=== PATIENT | male | born 1965 | race Caucasian/White ===

== ENCOUNTER 2018-11-03 02:33 | Emergency (ER) | payer OTHER ==
[2018-11-03 03:31] VITALS: BP 130/83; PULSE 58; TEMP 98.3; BMI 33.0
--- NOTE | 2018-11-03 03:49 | PDOC ---
History of Present Illness - General Chief Complaint: Ingestion Stated Complaint: INGESTION OF FOREIGN SUBSTANCE Time Seen by Provider: 11/03/18 03:29 History Source: Patient - History of Present Illness Initial Comments: 11/03/18 04:02 53 year old male Complaining of accidentally drinking less than 2 ounces of diluted Clorox now with irritation to the throat and reports some burning to chest. Patient since episode has rinsed his mouth multiple times and drank Allmond milk. Reports symptoms has been much milder since then. Denies nausea, vomiting, abdominal pain. No drooling, respiratory complaints. Past History - Past Medical History Allergies/Adverse Reactions: Allergies Allergy/AdvReac Type Severity Reaction Status Date / Time No Known Allergies Allergy Verified 11/03/18 03:31 Home Medications: Ambulatory Orders NK [No Known Home Medication] 11/13/15 Asthma: No Diabetes: Yes (DIET CONTROLLED) HTN: No Hypercholesterolemia: Yes (borderline, on diet control) - Suicide/Smoking/Psychosocial Hx Smoking Status: No Smoking History: Never smoked Have you smoked in the past 12 months: No Number of Cigarettes Smoked Daily: 0 Information on smoking cessation initiated: No Hx Alcohol Use: No Drug/Substance Use Hx: No Substance Use Type: None Review of Systems - Review of Systems Able to Perform ROS?: Yes Is the patient limited [place] proficient: No Constitutional: No: Symptoms Reported, See HPI, Chills, Diaphoresis, Fever, Loss of Appetite, Malaise, Night Sweats, Weakness, Weight Stable, Unintentional Wgt. Loss, Unexplained wgt Loss, Other *Physical Exam - Vital Signs Last Vital Signs Temp Pulse Resp BP Pulse Ox 98.3 F 58 L 16 130/83 98 11/03/18 02:33 11/03/18 02:33 11/03/18 02:33 11/03/18 02:33 11/03/18 02:33 - Physical Exam General Appearance: Yes: Appropriately Dressed HEENT: positive: Pharyngeal Erythema (mild) Respiratory/Chest: positive: Lungs Clear, Normal Breath Sounds Cardiovascular: positive: Regular Rhythm, Regular Rate Gastrointestinal/Abdominal: positive: Normal Bowel Sounds, Soft. negative: Tender Medical Decision Making - Medical Decision Making 11/03/18 04:39 case discussed with poison control worker (Don Elder) recommends by mouth trailing and GI consult. Case also discussed with Dr. trigenis. since Clorox this diluted down from commercially made, we will monitor for any worsening symptoms and give by mouth challenge. 11/03/18 04:40 patient tolerated drinking juice and water. Reports feeling relief. We'll continue to monitor for any adverse outcome. 11/03/18 05:48 tolerated PO . no pain at this time. will d/c home *DC/Admit/Observation/Transfer Diagnosis at time of Disposition: Ingestion of bleach Qualifiers: Encounter type: initial encounter Injury intent: accidental or unintentional Qualified Code(s): T54.91XA - Toxic effect of unspecified corrosive substance, accidental (unintentional), initial encounter - Discharge Dispostion Disposition: HOME Condition at time of disposition: Fair - Referrals Referrals: Carlos Ferguson [Primary Care Provider] - 24 hours - Patient Instructions Printed Discharge Instructions: Gastritis Additional Instructions: drink plenty of fluids bland diet follow up with your doctor as soon as possible. - Post Discharge Activity Forms/Work/School Notes: Back to Work
--- NOTE | 2018-11-03 03:52 | PDOC ---
*Physical Exam - Vital Signs Last Vital Signs Temp Pulse Resp BP Pulse Ox 98.3 F 58 L 16 130/83 98 11/03/18 02:33 11/03/18 02:33 11/03/18 02:33 11/03/18 02:33 11/03/18 02:33 Medical Decision Making - Medical Decision Making 11/03/18 03:52 Patient seen by the advanced practice provider under my direct supervision. Ancillary testing reviewed as necessary. I agree with plan as outlined by the advanced practice provider. *DC/Admit/Observation/Transfer Diagnosis at time of Disposition: Ingestion of bleach Qualifiers: Encounter type: initial encounter Injury intent: accidental or unintentional Qualified Code(s): T54.91XA - Toxic effect of unspecified corrosive substance, accidental (unintentional), initial encounter - Discharge Dispostion Disposition: HOME Condition at time of disposition: Fair - Referrals Referrals: Carlos Ferguson [Primary Care Provider] - 24 hours - Patient Instructions Printed Discharge Instructions: Gastritis Additional Instructions: drink plenty of fluids bland diet follow up with your doctor as soon as possible. - Post Discharge Activity Forms/Work/School Notes: Back to Work
== END 2018-11-03 06:25 | disposition home or self-care (01) ==
LOC: JER 02:33
DX: T54.91XA Toxic effect of unspecified corrosive substance, accidental (unintentional), initial encounter (principal); R07.0 Pain in throat; R07.9 Chest pain, unspecified; Y92.89 Other specified places as the place of occurrence of the external cause
CPT/HCPCS: 99283-25

== ENCOUNTER 2018-11-16 19:26 | Emergency (ER) | payer OTHER ==
[2018-11-16 19:33] VITALS: BP 137/88; PULSE 77; TEMP 98.1; BMI 33.2
[2018-11-16] MEDS ORDERED: CYCLOBENZAPRINE HCL 10 MG TABLET (FP) ONE (19:41)
[2018-11-16] MEDS ORDERED: KETOROLAC TROMETHAMINE 60 MG/2 ML VIAL ONE (19:41)
[2018-11-16] MEDS ORDERED: predniSONE 20 MG TABLET (UD) ONE (19:41)
[2018-11-16] MEDS ORDERED: predniSONE 20 MG TABLET (UD) PO ONE (19:48)
[2018-11-16] MEDS ORDERED: CYCLOBENZAPRINE HCL 10 MG TABLET (FP) PO ONE (19:49)
[2018-11-16] MEDS ORDERED: KETOROLAC TROMETHAMINE 60 MG/2 ML VIAL IM ONE (19:49)
--- NOTE | 2018-11-16 20:01 | PDOC ---
Documentation entered by Dara Grider SCRIBE, acting as scribe for Geoff Brumfield MD. Geoff Brumfield MD: This documentation has been prepared by the Cheo anton Xhesika, SCRIBE, under my direction and personally reviewed by me in its entirety. I confirm that the documentation accurately reflects all work, treatment, procedures, and medical decision making performed by me. History of Present Illness - General Chief Complaint: Pain, Acute Stated Complaint: BACK PAIN DUE TO WORK INJURY Time Seen by Provider: 11/16/18 19:32 History Source: Patient Exam Limitations: No Limitations - History of Present Illness Initial Comments: 11/16/18 19:50 The patient is a 53 year old male, with no significant past medical history of who presents to the emergency department with 4 days of lower back pain. The patient states he works at [employer], one of the kids knocked over a flower pot on , when he was lifting a flower pot and felt his back lock. The patient describes the pain as 8/10, non radiating pain, worsened with movements. Patient notes he took aleve with no relief of symptoms. The patient denies chest pain, shortness of breath, headache or dizziness. The patient denies fever, chills, nausea, vomiting, diarrhea or constipation. The patient denies dysuria, frequency, urgency or hematuria. PAST MEDICAL HISTORY: no significant history PAST SURGICAL HISTORY: no significant history FAMILY HISTORY: no pertinent history SOCIAL HISTORY: Pt lives with family and is employed. MEDICATIONS: reviewed ALLERGIES: As per nursing notes 11/16/18 21:42 Assessment plan: This is a 53-year-old male who comes in complaining of low back pain. Patient has history of similar pain in the past. Patient was injured while working at [employer] when he tried to lift a heavy flowerpot. Patient otherwise denies any neurological complaints and he was neurologically intact on exam. Patient was given 3 days off from work, prescriptions for anti- inflammatories and muscle relaxants and an orthopedic follow-up. Past History - Past Medical History Allergies/Adverse Reactions: Allergies Allergy/AdvReac Type Severity Reaction Status Date / Time No Known Allergies Allergy Verified 11/16/18 19:28 Home Medications: Ambulatory Orders Cyclobenzaprine HCl [Flexeril 10 mg] 10 mg PO TID PRN #30 tablet 11/16/18 Naproxen [Naprosyn] 500 mg PO BID #28 tablet 11/16/18 Asthma: No COPD: No Diabetes: Yes (DIET CONTROLLED) HTN: No Hypercholesterolemia: Yes (borderline, on diet control) - Suicide/Smoking/Psychosocial Hx Smoking Status: No Smoking History: Never smoked Have you smoked in the past 12 months: No Number of Cigarettes Smoked Daily: 0 Information on smoking cessation initiated: No Hx Alcohol Use: No Drug/Substance Use Hx: No Substance Use Type: None Review of Systems - Review of Systems Able to Perform ROS?: Yes Comments:: 11/16/18 19:51 General: No fevers or chills, no weakness, no weight loss HEENT: No change in vision. No sore throat,. No ear pain CardioVascular: No chest pain or shortness of breath Respiratory:No cough, or wheezing. Gastrointestinal: no nausea, vomiting, diarrhea or constipation, No rectal bleeding Genitourinary: No dysuria, hematuria, or frequency Musculoskeletal: (+) back pain. No joint or muscle pain or swelling Neurologic: No headache, vertigo, dizziness or loss of consciousness Psychiatric: nor depression Skin: No rashes or easy bruising Endocrine: no increased thirst or abnormal weight change Allergic: no skin or latex allergy All other systems reviewed and normal *Physical Exam - Vital Signs Last Vital Signs Temp Pulse Resp BP Pulse Ox 98.1 F 77 16 137/88 97 11/16/18 19:29 11/16/18 19:29 11/16/18 19:29 11/16/18 19:29 11/16/18 19:29 - Physical Exam Comments: 11/16/18 19:51 GENERAL: The patient is awake, alert, and fully oriented, in no acute distress. HEAD: Normal with no signs of trauma. EYES: Pupils equal, round and reactive to light, extraocular movements intact, sclera anicteric, conjunctiva clear. EXTREMITIES: (+) moderate TTP L2, L3. (+) limited ROM secondary to pain. Neurovascular intact. no sciatic notch tenderness. NEUROLOGICAL: Normal speech, normal gait. PSYCH: Normal mood, normal affect. SKIN: Warm, Dry, normal turgor, no rashes or lesions noted. ED Treatment Course - Medications Given in the ED: ED Medications Discontinued Medications Generic Name Dose Route Start Last Admin Trade Name Freq PRN Reason Stop Dose Admin Cyclobenzaprine HCl 10 mg 11/16/18 19:49 11/16/18 19:51 Flexeril - PO 11/16/18 19:50 10 mg ONCE ONE Administration Ketorolac Tromethamine 60 mg 11/16/18 19:49 11/16/18 19:51 Toradol Injection - IM 11/16/18 19:50 60 mg ONCE ONE Administration Prednisone 40 mg 11/16/18 19:48 11/16/18 19:51 Deltasone - PO 11/16/18 19:49 40 mg ONCE ONE Administration *DC/Admit/Observation/Transfer Diagnosis at time of Disposition: Low back pain Qualifiers: Chronicity: acute Back pain laterality: midline Sciatica presence: without sciatica Qualified Code(s): M54.5 - Low back pain - Discharge Dispostion Disposition: HOME Condition at time of disposition: Stable Decision to Admit order: No - Prescriptions Prescriptions: Cyclobenzaprine HCl [Flexeril 10 mg] 10 mg PO TID PRN #30 tablet PRN Reason: Back Pain Naproxen [Naprosyn] 500 mg PO BID #28 tablet - Referrals Referrals: Dorian García MD [Staff Physician] - - Patient Instructions Additional Instructions: For the pain take naproxen 1 tablet twice a day with food don't take on an empty stomach In addition to that for muscle spasm take Flexeril one tablet 3 times a day. The muscle relaxant will make you drowsy so do not take if you have to go to work or drive limited to the nighttime hours.. Follow-up with an orthopedist call in the morning to make an appointment for Friday. No work until Friday Return to the emergency department immediately with ANY new, persistent or worsening symptoms. Continue any medications as previously prescribed by your physician. You should follow up with your primary doctor as soon as possible regarding today's emergency department visit. . Please make sure your doctor reviews the results of your emergency evaluation. Thank you for coming to the Emergency Department today for your care. It was a pleasure to see you today. Please note that your evaluation is INCOMPLETE until you follow-up with your doctor. - Post Discharge Activity Forms/Work/School Notes: Back to Work
== END 2018-11-16 20:09 | disposition home or self-care (01) ==
LOC: FER 19:26
PROC: 3E0233Z Introduction of Anti-inflammatory into Muscle, Percutaneous Approach (ICD-10-PCS; principal; 2018-11-16)
DX: M54.5 Low back pain (principal); E11.9 Type 2 diabetes mellitus without complications; E78.00 Pure hypercholesterolemia, unspecified
CPT/HCPCS: 99282-25

== ENCOUNTER 2020-05-11 12:33 | Emergency (ER) | payer OTHER | END 2020-05-11 14:06 | disposition home or self-care (01) | LOC: JVIRT 12:33 | DX: Z20.822 Contact with and (suspected) exposure to COVID-19 (principal) | CPT/HCPCS: C9803; G2012-GT; U0003 ==

== ENCOUNTER 2021-04-26 20:00 | Emergency (ER) | payer OTHER ==
[2021-04-26 20:52] VITALS: BP 138/73; PULSE 65; TEMP 98.5; BMI 33.2
[2021-04-26] MEDS ORDERED: METHOCARBAMOL 500 MG TABLET PO ONE (21:04)
[2021-04-26] MEDS ORDERED: METHOCARBAMOL 500 MG TABLET ONE (21:08)
== END 2021-04-26 22:18 | disposition home or self-care (01) ==
LOC: FER 20:00
DX: M54.50 Low back pain, unspecified (principal)
CPT/HCPCS: 99283-25

== ENCOUNTER 2022-01-03 09:39 | Emergency (ER) | payer OTHER ==
[2022-01-03 09:45] VITALS: RESP 22; TEMP 98; BMI 34.7
[2022-01-03 11:47] LABS: BASO % 0.6 % (0-2.0); EOS % 2.5 % (0-4.5); HEMATOCRIT 40.1 % (35.4-49); HEMOGLOBIN 13.6 GM/dL (11.7-16.9); LYMPH % 24.2 % (8-40); MCH 31.1 pg (25.7-33.7); MEAN CELL VOLUME 91.4 fl (80-96); MEAN PLT VOLUME 8.7 fl (7.5-11.1); NEUT % 63.7 % (42.8-82.8); PLATELET COUNT 190 10^3/uL (134-434); RBC 4.38 M/mm3 (4.00-5.60); RDW 12.5 % (11.9-15.9); WHITE BLOOD COUNT 5.2 K/mm3 (4.0-10.0)
[2022-01-03 12:02] LABS: CALCIUM 8.8 mg/dL (8.5-10.1)
[2022-01-03 12:03] LABS: ALBUMIN 3.8 g/dl (3.4-5.0)
[2022-01-03 12:06] LABS: CREATININE 1.1 mg/dL (0.55-1.3)
[2022-01-03 12:07] LABS: BILIRUBIN,TOTAL 0.8 mg/dL (0.2-1)
[2022-01-03 13:49] VITALS: BP 130/80; PULSE 75
== END 2022-01-03 16:24 | disposition home or self-care (01) ==
LOC: JER 09:39
DX: R07.89 Other chest pain (principal)
CPT/HCPCS: 36415; 71046-TC-FY; 80053; 84484; 85025; 93005; 93010; 99285-25